=== PATIENT | female | born 1930 | race Caucasian/White ===

== ENCOUNTER → 2018-01-30 | Outpatient (CLI) | payer OTHER ==
[~2018-01-30] MED LIST: ADVAIR HFA115 MCG/21 INH; ANASTROZOLE1 MG PO; ASPIRIN325 PO; CITRACAL-VIT D1 EAC2 PO; COLACE100 MG PO; IBUPROFEN 400400 M2 PO; MACROBID 100 M100 M1 PO; MIRALAX17 GM PO; MOM PO; MUCINEX TA600 MG/TA2 PO; NORCO 5-325 TA1 EACH PO; PROAIR HFA8.5 GM INH; SPIRIVA INH; TYLENOL325 MG PO; VENTOLIN HFA 1818 GM INH; XGEVA120 MG/1.7 IM
== END ==
LOC: RAD 12:25
DX: J44.9 Chronic obstructive pulmonary disease, unspecified (principal); D71 Functional disorders of polymorphonuclear neutrophils; J98.4 Other disorders of lung

== ENCOUNTER 2018-11-25 08:30 | Inpatient (IN) | payer OTHER ==
[2018-11-25] VITALS (7 sets, daily range): BP systolic 87–119; BP diastolic 39–59
[~2018-11-25] VITALS: Ht 160 cm; Wt 54.9 kg
[2018-11-25 08:50] LABS: BASOPHILS 1.2 % (0.0-2.0); HEMATOCRIT 38.2 % (37.0-47.0); HEMOGLOBIN 12.6 gm/dL (12.0-15.0); LYMPHOCYTES 14.7 % (24.0-44.0); MCH 29.1 pg (26.0-34.0); MCHC 32.9 g/dL (28.0-37.0); MCV 88.5 fL (80.0-100.0); PLATELET COUNT 280 thou/uL (150-400); POLYS 73.1 % (36.0-66.0); RBC 4.31 mil/uL (4.20-5.00); RDW 15.8 % (10.5-14.5); WBC 6.8 thou/uL (4.0-11.0)
[2018-11-25 09:12] LABS: CALCIUM 8.2 mg/dL (8.5-10.1); CREATININE 0.9 mg/dL (0.6-1.0); POTASSIUM 4.3 mmol/L (3.5-5.1)
[2018-11-25] MEDS ORDERED: ASPIR 8181 MG PO (12:19)
[2018-11-25] MEDS ORDERED: CALCIUM 500 +1 EAC5 PO (12:20)
[2018-11-25] MEDS ORDERED: GUAIFENESIN ER600 MG PO (12:22)
[2018-11-25] MEDS ORDERED: CARDIZEM CD120 MG PO (12:23)
[2018-11-25] MEDS ORDERED: XARELTO20 MG PO (12:23)
--- NOTE | 2018-11-25 18:49 | NUR ---
Assumed care of patient when arrived from ER this morning. Patient is alert and oriented x4, forgetful at times. Pleasant. Vitals are stable. Patient is maintaining oxygen saturations on 3L NC, baseline is 2L NC. Admission history, assessment, education completed. Medications reconciled. Appropriate arm bands in place. Pulmonary consult; Dr. Branch saw patient this afternoon. Patient is up with SBA and walker. Fall precautions in place; calls appropriately. Urine sample collected and sent to lab for culture. Patient feels that breathing has been improving since admission. Slowly progressing towards POC. Will continue to monitor.
[2018-11-26 03:22] VITALS: BP 136/66
--- NOTE | 2018-11-26 04:20 | NUR ---
sitting at edge of bed dangling, she is deciding on breakfast and is cheerful and talkative. minimal dyspnea with exertion. progressing toward discharge goals.careplan reviwed, denies discharge concerns
[2018-11-26 06:56] LABS: CALCIUM 8.4 mg/dL (8.5-10.1); CREATININE 0.9 mg/dL (0.6-1.0); POTASSIUM 4.6 mmol/L (3.5-5.1)
[2018-11-26 07:15] VITALS: BP 138/97
[2018-11-26 11:36] VITALS: BP 119/51
--- NOTE | 2018-11-26 13:34 | NUR ---
Assumed care of patient at 0700. Vitals have been stable. Maintaining oxygen saturations on 2L NC, which is patient's baseline. Still SOB with activity, but improving. Able to recover quickly on own; knows pursed lip breathing techniques. Patient feels breathing is much better. Alert and oriented x4, pleasant. Denies pain. IVF discontinued per Dr. Marquez's orders, as patient is eating and drinking well. Light yellow urine and adequate urine output. Up with SBA and walker to bathroom. Patient calls appropriately for assistance. Shower this afternoon. Visited with family at bedside. Progressing towards POC. Will continue to monitor.
[2018-11-26 15:40] VITALS: BP 120/53
--- NOTE | 2018-11-26 17:50 | HC ---
[facility] [place] [address] CONSULTATION Name: CAN MEDEIROS Room #: 364-P ADM IN M.R.#: [id number] Admission: 11/25/18 ������������������ Attend Phys: Lemuel Marquez MD Discharge: ������������������ Date of : 34 Report #: [id number] THIS REPORT FOR: //name// CC: Isael Alfaro MD TYPE OF REPORT: Pulmonary consultation. PRIMARY CARE PHYSICIAN: Dr. Ruddy Ortiz. REFERRING PHYSICIAN: Lemuel Marquez M.D. REASON FOR REFERRAL: Progressive dyspnea. HISTORY OF PRESENT ILLNESS: The patient is an 88-year-old white female who had known history of severe COPD, presents with progressive dyspnea. She is normally followed longitudinally by Dr. Kristopher Alfaro. She was in fact recently seen by Dr. Alfaro within the past week. Her baseline FEV1 is about 0.6 liter or 39% predicted, FVC measured 1.57 liters, 69% predicted, FEV1/FVC ratio 38%. She normally uses Advair 250 mcg 1 puff twice a day, Proventil, nebulized albuterol q. 6 p.r.n. and Spiriva 1 capsule once a day. Over the past several months, she has noticed progressive episodic dyspnea. Recently, she was evaluated for her dyspnea. A CT chest angiogram was performed showing possible tiny pulmonary embolus involving the right upper lobe, but in fact, this was felt to be a mucus plug. She is on Xarelto. Otherwise, she was in her usual state of health until one day prior to presentation, she started to develop increasing moderately severe dyspnea. She denies any recent febrile illness, chest pain or productive cough. She denies any other chest symptoms. 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 PAST SURGICAL HISTORY: Notable appendectomy, right mastectomy and thoracotomy in 2013 with a right middle lobe lobectomy. ALLERGIES: None noted. HOME MEDICATIONS: Reviewed. Inhalers as mentioned above including aspirin, calcium supplements, Cardizem and Xarelto. FAMILY HISTORY: Notable for myocardial infarction in mother who at the [facility] [address] [place] [address] CONSULTATION Name: CAN MEDEIROS Room #: 364-P [facility] IN .R.#: [id number] Admission: 11/25/18 ������������������ Attend Phys: Lemuel Marquez MD Discharge: ������������������ Date of : 34 Report #: [id number] 68. Father , reasons unknown. SOCIAL HISTORY: She currently resides at independent living facility. She has smoked for many years, quit in 2012. She denies any alcohol use. REVIEW OF SYSTEMS: As mentioned above, otherwise 10-point system review negative. PHYSICAL EXAMINATION: GENERAL: She is awake, alert, in no distress. VITAL SIGNS: Temperature maximum is 100.0 degrees Fahrenheit, pulse is 110, respiratory rate is 18, blood pressure 115/54 mmHg and saturation 95%. HEENT: Normocephalic and atraumatic. NECK: Supple, without any lymphadenopathy or thyromegaly. CHEST: Fairly clear with mildly prolonged expiratory phase. No obvious wheezes. Air movements are reduced. CARDIOVASCULAR: Normal S1 and S2. There are no murmurs or gallop. There is no JVD. There is no carotid bruit. Pulses are 2+/4+ bilaterally. ABDOMEN: Soft and nontender. No organomegaly or masses felt. GENITOURINARY: Deferred. RECTAL: Deferred. EXTREMITIES: There is no edema, cyanosis or clubbing. RADIOLOGICAL DATA: Chest x-ray shows clear lung walker, along with bullous changes. CT chest angiogram was reviewed performed recently again showing diffuse bilateral bullous disease. Leg Doppler ultrasound was negative for DVT. LABORATORY DATA: Electrolytes are normal. CBC is 6800 and hemoglobin is normal. IMPRESSION: 1. Progressive dyspnea in this 88-year-old white female with severe chronic obstructive pulmonary disease. She has low-grade fever. Her recent chest CT shows questionable pulmonary embolus. She is on anticoagulation. Leg Doppler ultrasound was negative for deep venous thrombosis. A baseline FEV1 is around 0.6 liters or 39% predicted. With a low-grade fever, cannot rule out a viral process or respiratory tract infection. Mild exacerbation of chronic obstructive pulmonary disease is also likely contributing. 2. Chronic obstructive pulmonary disease, severe impairment with exacerbation. 3. Low-grade fever, rule out infectious process. Given this patient's chronic obstructive pulmonary disease, lower respiratory tract infection is suspected. 4. Breast cancer, status post right mastectomy in 2006 with metastases to the skeletal system along with the right middle lobe, status post right middle lobe [address] [address] CONSULTATION Name: CAN MEDEIROS Room #: 364-P [facility] IN M.R.#: [id number] Admission: 11/25/18 ������������������ Attend Phys: Lemuel Marquez MD Discharge: ������������������ Date of : 34 Report #: [id number] lobectomy. 5. Remote history of cerebrovascular accident without residual effects. RECOMMENDATIONS: We will recommend pulse steroid therapy, bronchodilators, broad-spectrum antibiotics. We would culture sputum, blood along with urine given febrile illness. In terms anticoagulation regarding possible pulmonary embolus, the CT chest on record suggests that it is very tiny. Recent literature suggests the anticoagulation may not be necessary and the patient with small tiny thrombus. However, I will resume the anticoagulation, we will defer to the patient's attending, Dr. Kristopher Alfaro. Lastly, some of the symptoms may be related to advancing age, deconditioning and weakness. This was discussed in detail with the patient and her family. Thank you for this consultation. ��������������������������������������������� <ELECTRONICALLY SIGNED> ���������������������������������������� By: Mj Branch MD ��������������������������������������������� 11/26/18 1750 [id number] Mj Branch MD /nt
--- NOTE | 2018-11-26 19:37 | EKG ---
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1930 Requested By: Mercedes Washburn Order Number: [id number] MD: Arash Ma Measurements Intervals [place] Rate: 115 P: 74 [place]: 121 QRS: 70 QRSD: 88 T: 28 QT: 313 QTc: 433 Interpretive Statements Sinus tachycardia left atrial enlargement Early transition Baseline wander Compared to ECG 08/05/2016 02:05:55 Heart rate is faster Electronically Signed On 11-26-2018 19:37:15 DRAUGHTSMAN by Arash Ma [email or web address] ��������������������������������������������� <ELECTRONICALLY SIGNED> ���������������������������������������� By: Arash Ma MD ��������������������������������������������� 11/26/181936 3 3 Arash Ma MD /EPI
[2018-11-26 20:14] VITALS: BP 127/52
[2018-11-27] VITALS (7 sets, daily range): BP systolic 112–149; BP diastolic 45–83
--- NOTE | 2018-11-27 03:34 | NUR ---
Patient progressing well towards outcome goals. States breathing is much improved. Cough dry non productive, patient refused Guiafenessin. Oxygen need back at baseline 2L/NC, SOA with activyt pts baseline. Able to get up to bathroom with walker stanby assist without difficulty. No results yet fro senekot. Appetite fair. Vital signs and rhythm stable.
--- NOTE | 2018-11-27 11:34 | NUR ---
TOWARDS POC PT A/O X4, VSS, AFEBRILE, DENIES PAIN, NO SOA, REMAINED IN 2L O2. NO CONCERNS VOICED, WILL CONTINUE TO MONITOR.
--- NOTE | 2018-11-27 14:24 | NUR ---
INITIAL ASSESSMENT: Received consult for discharge planning. JOSELITO reviewed chart and spoke with nursing and attending physician. Pt was admitted from [facility] due to exacerbation of COPD. Pt is progressing towards goals for discharge. Discharge is anticipated in 1-2 days. JOSELITO met with pt at bedside. Introduced role of SW. Pt is alert/orientated x 4. Pt states she lives alone in an AL apt at [facility] in [place]. Prior to admission, pt was using a walker to ambulate within the facility. She uses a cane when she goes out with family. Pt has home O2 in place with [employer]. Pt is normally on 3L continuous O2. Pt does not currently have HH services, and states she does not need it. The AL facility does have group exercise available. Pt is hoping to d/c home tomorrow. Pt's family will provide transportation. SW is following to assist as needed with discharge planning.
--- NOTE | 2018-11-27 20:00 | NUR ---
PATIENT TRANSFERRED FROM [facility], REPORT FROM ROM/RN. PATIENT ALERT AND ORIENTED X 4. UP AD MELVIN. O2 AT 2 LITERS/NC IN PLACE. BLOOD SUGAR MONITORING ORDERED. PATIENT MAY DISCHARGE TOMORROW IF STABLE. WILL CONTINUE TO MONITOR.
--- NOTE | 2018-11-28 07:16 | NUR ---
Pt A/OX4,up ad canelo with no problems.Denies pain on assessment.No coughing or SOA reported.VSS.Voiding without any problems voiced.Resting at the bedside at this time will continue to monitor pt.
[2018-11-28 07:29] VITALS: BP 125/61
[2018-11-28] MEDS ORDERED: PANTOPRAZOLE SO40 M1 PO (10:46)
[2018-11-28] MEDS ORDERED: IPRAT-ALBUT 0.5-3 ML INH (10:46)
[2018-11-28] MEDS ORDERED: CEFUROXIME500 MG PO (10:46)
[2018-11-28] MEDS ORDERED: AZITHROMYCIN 2250 MG PO (10:46)
[2018-11-28] MEDS ORDERED: SENNA PLUS TAB1 EACH PO (10:46)
[2018-11-28 12:53] VITALS: BP 125/61
--- NOTE | 2018-11-28 13:17 | NUR ---
ASSUMED CARE OF PATIENT AT 0715, PATIENT ALERT AND ORIENTED X 4. PATIENT UP AD MELVIN. PATIENT DENIES PAIN THIS AM, AND NOW. PATIENT HAD IV LEFT FOREARM REMOVED NOW. PATIENT HAD SMALL BM THIS AM, AND VOIDS WITHOUT DIFFICULTY. PATIENT HAS O2 AT 2 LITERS/NC IN PLACE AND AT HOME. BILATERAL LUNGS CLEAR AND DIMINSHED. BLOOD SUGAR MONITORING ORDERED, S/S INSULIN NOT GIVEN TODAY BLOOD SUGAR WITHIN NORMAL RANGE. ALL DISCHARGE PAPERWORK AND ALL PERSONAL BELONGINGS SENT WITH THE PATIENT. SON PRESENT FOR DISCHARGE. HOME HEALTH WILL BE SETUP PER TURNER THRU HER ASSISTED LIVING FACILITY.
--- NOTE | 2018-11-28 13:24 | NUR ---
ramon sent discharge papers and home health orders to [facility] where patient is from. RAMON spoke with Vee at facility and she said they will set up the hh for patient.
--- NOTE | 2018-11-28 14:26 | NUR ---
DISCHARGE NOTE: SW reviewed chart and spoke with nursing and attending physician. Pt was transferred to [facility] from and is medically stable for discharge home today. Orders written for HH services. Discharge orders/summary faxed to [facility] in [place] for review. [facility] to arrange HH for pt at the facility. Pt's family at bedside provided transportation home. No additional SW needs identified at this time, but is available to assist should needs arise.
== END 2018-11-28 13:30 | disposition home health service (06) | DRG 193 ==
LOC: ER 08:30 → EROBS 10:25 → 3W 10:25 → SICU 11-27 18:28 → ENTRNSPT 11-28 13:16 → EDTRNSPTSTS 11-28 13:23 → SICU 11-28 13:30
PROVIDERS: Emergency Medicine; Internal Medicine Pulmonary Disease; ADMIT Internal Medicine
DX: J18.9 Pneumonia, unspecified organism (principal); J96.21 Acute and chronic respiratory failure with hypoxia; J44.1 Chronic obstructive pulmonary disease with (acute) exacerbation; J44.0 Chronic obstructive pulmonary disease with (acute) lower respiratory infection; R41.81 Age-related cognitive decline; I10 Essential (primary) hypertension; M62.84 Sarcopenia; I48.91 Unspecified atrial fibrillation; Z87.891 Personal history of nicotine dependence; Z85.3 Personal history of malignant neoplasm of breast; Z85.118 Personal history of other malignant neoplasm of bronchus and lung; Z86.73 Personal history of transient ischemic attack (TIA), and cerebral infarction without residual deficits; Z86.711 Personal history of pulmonary embolism; Z98.42 Cataract extraction status, left eye; Z98.41 Cataract extraction status, right eye; Z90.11 Acquired absence of right breast and nipple; Z90.2 Acquired absence of lung [part of]; Z90.49 Acquired absence of other specified parts of digestive tract; Z92.21 Personal history of antineoplastic chemotherapy; Z79.01 Long term (current) use of anticoagulants; Z79.82 Long term (current) use of aspirin; Z79.899 Other long term (current) drug therapy; Z82.49 Family history of ischemic heart disease and other diseases of the circulatory system; J20.9 Acute bronchitis, unspecified
CPT/HCPCS: 10879; 15002

== ENCOUNTER 2019-05-27 08:11 | Emergency (ER) | payer OTHER ==
[~2019-05-27] VITALS: Ht 165.1 cm; Wt 63.5 kg
[~2019-05-27 08:11] MED LIST changes: +ASPIR 8181 MG PO; +AZITHROMYCIN 2250 MG PO; +CALCIUM 500 +1 EAC5 PO; +CARDIZEM CD120 MG PO; +CEFUROXIME500 MG PO; +GUAIFENESIN ER600 MG PO; +IPRAT-ALBUT 0.5-3 ML INH; +PANTOPRAZOLE SO40 M1 PO; +SENNA PLUS TAB1 EACH PO; +XARELTO20 MG PO
[2019-05-27] MEDS ORDERED: SLOW FE142 MG PO (08:21)
[2019-05-27 09:09] LABS: HEMATOCRIT 35.6 % (37.0-47.0); HEMOGLOBIN 11.1 gm/dL (12.0-15.0); MCH 24.4 pg (26.0-34.0); MCHC 31.3 g/dL (28.0-37.0); RBC 4.57 mil/uL (4.20-5.00); RDW 22.3 % (10.5-14.5); WBC 23.7 thou/uL (4.0-11.0)
[2019-05-27 09:21] LABS: ANION GAP 12 mmol/L (7-16); BUN 23 mg/dL (7-18); CALCIUM 9.5 mg/dL (8.5-10.1); CHLORIDE 102 mmol/L (98-107); CO2 24 mmol/L (21-32); CREATININE 1.1 mg/dL (0.6-1.0); GLUCOSE 101 mg/dL (74-106); POTASSIUM 4.3 mmol/L (3.5-5.1); SODIUM 138 mmol/L (136-145)
[2019-05-27 09:31] LABS: ALBUMIN 3.4 g/dL (3.4-5.0); DIRECT BILIRUBIN < 0.1 mg/dL (<0.1-0.3); SGOT 18 U/L (15-37); SGPT 17 U/L (30-65); TOTAL BILIRUBIN 0.5 mg/dL (<0.1-1.0); TOTAL PROTEIN 7.7 g/dL (6.4-8.2); TROPONIN-I <0.06 ng/mL (<0.06)
[2019-05-27 09:55] LABS: ABSOLUTE NEUTROPHILS 17.8 thou/uL (1.4-8.2); PLATELET COUNT 291 thou/uL (150-400)
[2019-05-27 09:56] LABS: ANISOCYTOSIS 3+; OVALOCYTES FEW
[2019-05-27] MEDS ORDERED: VIBRAMYCIN 100100 MG PO (11:35)
[2019-05-27 12:40] VITALS: BP 110/58
--- NOTE | 2019-05-29 09:04 | EKG ---
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1930 Requested By: Mercedes Washburn Order Number: [id number] MD: Prieto Culver Measurements Intervals [place] Rate: 107 P: 79 [place]: 124 QRS: 77 QRSD: 169 T: 29 QT: 316 QTc: 422 Interpretive Statements Sinus tachycardia Probable left atrial enlargement Nonspecific intraventricular conduction delay Compared to ECG 11/25/2018 08:44:57 Intraventricular conduction delay now present Electronically Signed On 05-29-2019 9:03:55 CDT by Prieto Culver [email or web address] <ELECTRONICALLY SIGNED> By: Prieto Culver MD 05/29/19902 8 8 Prieto Culver MD /JESI
== END 2019-05-27 12:42 | disposition home or self-care (01) ==
LOC: ER 08:11
PROVIDERS: Emergency Medicine
DX: J18.9 Pneumonia, unspecified organism (principal); I48.91 Unspecified atrial fibrillation; J44.9 Chronic obstructive pulmonary disease, unspecified; Z85.848 Personal history of malignant neoplasm of other parts of nervous tissue; Z86.73 Personal history of transient ischemic attack (TIA), and cerebral infarction without residual deficits; Z90.49 Acquired absence of other specified parts of digestive tract; Z90.11 Acquired absence of right breast and nipple; Z85.3 Personal history of malignant neoplasm of breast; Z85.118 Personal history of other malignant neoplasm of bronchus and lung; Z87.891 Personal history of nicotine dependence